=== PATIENT | female | born 1980 | race African-American/Black ===

== ENCOUNTER 2025-01-27 01:28 | Emergency (ER) | payer OTHER ==
[~2025-01-27] VITALS: Ht 182.9 cm; Wt 82.0 kg
[2025-01-27 01:35] VITALS: BP 163/91; PULSE 70; RESP 16; TEMP 98.6; O2SAT 99
[2025-01-27 02:36] LABS: BASOPHILS % 0.8 % (0.0-2.0); EOSINOPHILS % 0.8 % (0.0-5.0); HEMATOCRIT. 35.8 % (36.0-48.0); HEMOGLOBIN. 12.0 g/dL (12.0-16.0); LYMPHOCYTES % 30.8 % (20.0-50.0); MEAN PLATELET VOLUME 8.9 fl (7.4-10.4); MONOCYTES % 5.8 % (2.0-8.0); NEUTROPHILS % 61.8 % (40.0-76.0); PLATELET 222 x1000/uL (130-400); RED BLOOD CELL COUNT 4.31 mill/uL (4.2-5.4); RED CELL DISTRIBUTION WIDTH 16.1 % (11.6-14.6)
[2025-01-27 02:47] LABS: CREATININE 1.0 mg/dL (0.6-1.0); UREA NITROGEN BLOOD 10 mg/dL (9-23)
[2025-01-27] MEDS: ACETAMINOPHEN 500MG TABLET PO ONE (03:00)
== END 2025-01-27 03:24 | disposition left against medical advice (07) ==
LOC: ER 01:28
DX: M79.671 Pain in right foot (principal); M79.672 Pain in left foot; I10 Essential (primary) hypertension; G62.9 Polyneuropathy, unspecified; E87.6 Hypokalemia; Z88.8 Allergy status to other drugs, medicaments and biological substances
CPT/HCPCS: 36415; 80048; 85025; 99283

== ENCOUNTER 2025-02-25 13:06 | Emergency (ER) | payer OTHER ==
[~2025-02-25] VITALS: Ht 167.6 cm; Wt 81.6 kg
[2025-02-25 13:09] VITALS: O2SAT 99
[2025-02-25] MEDS ORDERED: PERM60CR20 TP (13:39)
[2025-02-25] MEDS ORDERED: HYDR453.4 TP (13:39)
[2025-02-25 13:52] VITALS: BP 131/85; PULSE 70; RESP 18; TEMP 36.9; O2SAT 99
[2025-03-04] MEDS ORDERED: AMLO5TAB88 PO (08:31)
== END 2025-02-25 13:53 | disposition home or self-care (01) ==
LOC: ER 13:06
DX: S90.862A Insect bite (nonvenomous), left foot, initial encounter (principal); S90.861A Insect bite (nonvenomous), right foot, initial encounter; I10 Essential (primary) hypertension; Z59.00 Homelessness unspecified; Z88.8 Allergy status to other drugs, medicaments and biological substances; W57.XXXA Bitten or stung by nonvenomous insect and other nonvenomous arthropods, initial encounter; Y93.89 Activity, other specified; Y92.89 Other specified places as the place of occurrence of the external cause; Y99.8 Other external cause status
CPT/HCPCS: 99283